=== PATIENT | female | born 1965 | race Caucasian/White ===

== ENCOUNTER → 2017-07-16 | Outpatient (CLI) | payer OTHER ==
--- NOTE | 2017-07-17 08:12 | MAMMOGRAPHY REPORT ---
BILATERAL DIGITAL SCREENING MAMMOGRAM TOMOSYNTHESIS WITH CAD: 07/16/2017 CLINICAL HISTORY: Routine screening. Patient has no complaints. TECHNIQUE: Breast tomosynthesis in addition to standard 2D mammography was performed. Current study was also evaluated with a Computer Aided Detection (CAD) system. COMPARISON: Comparison is made to exams dated: 04/06/2016 mammogram, 04/01/2015 mammogram, 12/25/2013 m ammogram, 12/05/2012 mammogram, and 11/30/2011 mammogram - [facility]. BREAST COMPOSITION: The tissue of both breasts is heterogeneously dense, which may obscure small mas ses. FINDINGS: There are diffuse bilateral benign-appearing microcalcifications. The breast parenchymal p attern is similar to prior mammograms. No obvious new mass, architectural distortion or cluster of n ew, suspicious microcalcifications is seen. IMPRESSION: ACR BI-RADS CATEGORY 1: NEGATIVE There is no mammographic evidence of malignancy. A 1 year screening mammogram is recommended. The pa tient will receive written notification of the results. Approximately 10% of breast cancers are not detected with mammography. A negative mammographic report should not delay biopsy if a clinically suggestive mass is present. Mirella Chino M.D. ay/:07/16/2017 16:38:50 [employer] [place] Head: Erna GARCIA(Yuly)(M), [facility] letter sent: Normal 1/2 BI-RADS Code: ACR BI-RADS Category 1: Negative
== END | disposition home or self-care (01) ==
LOC: C.MAMM 08:09
PROVIDERS: ATTEND Family Medicine
DX: Z12.31 Encounter for screening mammogram for malignant neoplasm of breast (principal)

== ENCOUNTER → 2017-07-18 | Outpatient (CLI) | payer OTHER ==
--- NOTE | 2017-07-18 10:32 | DIAGNOSTIC IMAGING REPORT ---
SOFT TISS HEAD/NECK-THYROID CLINICAL HISTORY: 51 years-old Female presenting with E04.9 Thyroid goiterfor f/u to multinodular goiter E X0D E ULTR7. TECHNIQUE: Real-time grayscale and color Doppler ultrasound imaging of the thyroid and base of the neck was performed. COMPARISON: None. FINDINGS: Right lobe: Heterogeneous echotexture. The right lobe of the thyroid measures 5.5 x 1.7 x 1.8 cm. Dominant hypoechoic well-defined wider than tall nodule at the interpolar to lower pole measuring 1.0 x 0.6 x 0.6 cm (intermediate suspicion pattern). No calcifications. Parenchymal hyperemia suggested. Left lobe: Heterogeneous echotexture without a well circumscribed nodule. The left lobe of the thyroid measures 5.2 x 1.5 x 1.8 cm. No nodules. Parenchymal hyperemia suggested. Isthmus: The isthmus measures 3 mm in thickness. No nodules. IMPRESSION: 1. Diffusely heterogeneous appearance of the thyroid gland could suggest underlying Sharan's thyroiditis or Graves' disease. Usually, underlying nodules would be expected to be better defined in the setting of multinodular goiter, although this remains a differential consideration. 2. 1 cm hypoechoic nodule in the right lobe is intermediate in suspicion. Based on the [place] [employer] criteria, fine-needle aspiration is recommended. Electronically signed by: Hitesh Park M.D. 07/18/2017 10:31 AM Dictated Date/Time: 07/18/2017 10:27 AM
== END | disposition home or self-care (01) ==
LOC: C.ULTR 09:59
PROVIDERS: ATTEND Family Medicine
DX: E04.1 Nontoxic single thyroid nodule (principal)

== ENCOUNTER → 2017-09-16 | Outpatient (CLI) | payer OTHER ==
[2017-09-16 12:20] LABS: ESTIMATED AVERAGE GLUCOSE 120 mg/dl; HA1C FLAG Normal (Normal)
[2017-09-16 12:34] LABS: CALCULATED INSULIN SENSITIVITY 0.339; GLUCOSE LOG 1.9542; INSULIN FASTING 9.9 mU/L (3-25); INSULIN LOG 0.9956
[2017-09-16 12:47] LABS: CHOLESTEROL/HDL RATIO 3.4; THYROID STIMULATING HORMONE 1.57 uIu/ml (0.300-4.500)
== END | disposition home or self-care (01) ==
LOC: C.LAB1850 10:26
PROVIDERS: ATTEND Internal Medicine Endocrinology, Diabetes & Metabolism
DX: R73.01 Impaired fasting glucose (principal); E04.9 Nontoxic goiter, unspecified

== ENCOUNTER → 2017-09-23 | Outpatient (CLI) | payer OTHER ==
--- NOTE | 2017-09-23 14:12 | DIAGNOSTIC IMAGING REPORT ---
ULTRASOUND GUIDED FINE NEEDLE ASPIRATION OF RIGHT LOBE THYROID NODULE CLINICAL HISTORY: ABNORMAL THYROID US, RT THYROID NODULE COMPARISON STUDY: Thyroid ultrasound July 18, 2017. PROCEDURE: Sonography of the thyroid gland demonstrated the 1 cm hypoechoic right lobe thyroid nodule which was targeted for fine aspiration. Procedure, risks and benefits were discussed with the patient and informed written consent was obtained. The procedure was performed by Dr. Patel following a timeout. Skin was prepped and draped in sterile fashion and local anesthesia was achieved with 1% lidocaine. Under direct ultrasound guidance, 3 25-gauge fine-needle aspirations of the 1 cm right lobe nodule were performed. Samples were deemed preliminarily adequate by pathology. IMPRESSION: Ultrasound guided fine-needle aspiration of 1 cm right lobe thyroid nodule. Electronically signed by: Khoa Patel M.D. 09/23/2017 2:10 PM Dictated Date/Time: 09/23/2017 2:09 PM
[2017-09-27 15:29] LABS: NEO FLOW LYMPH/LEUK STND Please see Misc Rept
== END | disposition home or self-care (01) ==
LOC: C.ULTR 12:16
PROVIDERS: ATTEND Internal Medicine Endocrinology, Diabetes & Metabolism
DX: E04.1 Nontoxic single thyroid nodule (principal); R93.8 Abnormal findings on diagnostic imaging of other specified body structures; E06.3 Autoimmune thyroiditis

== ENCOUNTER → 2017-12-13 | Outpatient (CLI) | payer OTHER | END | disposition home or self-care (01) | LOC: C.PAPS 11:08 | PROVIDERS: ATTEND Family Medicine | DX: Z12.4 Encounter for screening for malignant neoplasm of cervix (principal) ==